=== PATIENT | male | born 1980 | race Caucasian/White ===

== ENCOUNTER → 2018-05-21 11:09 | Outpatient (REF) | payer SELFPAY | LOC: OM 11:09 | PROVIDERS: PCP Nurse Practitioner; Visit Provider Nurse Practitioner Family | DX: Z02.83 Encounter for blood-alcohol and blood-drug test (principal) ==

== ENCOUNTER 2019-03-30 13:59 | Outpatient (CLI) | payer MEDICAID, SELFPAY ==
[2019-03-30 15:41] LABS: Calculated LDL 197; Cholesterol 261 mg/dL (50-200); HDL Cholesterol 40 mg/dL (40-60); Triglyceride 123 mg/dL (30-150)
== END 2019-03-30 14:19 ==
PROVIDERS: PCP Nurse Practitioner; Visit Provider Nurse Practitioner
DX: Z13.220 Encounter for screening for lipoid disorders (principal)
CPT/HCPCS: 36415; 80061; 83721

== ENCOUNTER 2019-04-23 15:29 | Outpatient (REF) | payer MEDICAID, SELFPAY ==
--- NOTE | 2019-04-23 13:00 | SOFT_PTH ---
PATIENT: Taco Bui LOC: [facility] U#:[id number] AGE/SX: 38/M ROOM: RE04/23/[address]: Suki Britt MD : [id number] BED: DIS: 04/23/2019 SPEC #: [id number] RECD: 04/23/19 16:17 STATUS: SILVIANO CINTRON #: [id number] AUDREY: 04/23/19 13:[address]: Suki Britt DEPT: Surgical Specimen RECD BY: Shiloh Michaels ENTERED: 04/23/19 16:18 SP TYPE: SOFT OTHR DR: Grisel Angela APRN Tissues: 1 - SOFT TISSUE MISC (INC. LIPOMA) 2 - SOFT TISSUE MISC (INC. LIPOMA) 3 - SOFT TISSUE MISC (INC. LIPOMA) 4 - SOFT TISSUE MISC (INC. LIPOMA) 5 - SOFT TISSUE MISC (INC. LIPOMA) Procedures: GROSS AND MICRO LEVEL 3 Comments: [id number]
== END 2019-04-23 15:49 ==
LOC: LBN 15:29
PROVIDERS: PCP Nurse Practitioner; Visit Provider Surgery
DX: D17.21 Benign lipomatous neoplasm of skin and subcutaneous tissue of right arm (principal); D17.1 Benign lipomatous neoplasm of skin and subcutaneous tissue of trunk; D17.24 Benign lipomatous neoplasm of skin and subcutaneous tissue of left leg
CPT/HCPCS: 88304; 88305

== ENCOUNTER 2019-04-26 06:58 | Day surgery (SDC) | payer MEDICAID, SELFPAY ==
--- NOTE | 2019-04-26 06:40 | W.COLOREPORT ---
Date of service: 04/26/19 Time of Service: 08:18 Colonoscopy Report Date of procedure: 04/26/19 Pre-op diagnosis general: CHange in bowel habits/ rectal bleeding Post-op diagnosis procedure note: other (Internal hemorrhoids and external kin tags) Procedure: Colonoscopy Surgeon: Suki Britt Anesthesia proc note operative: other (General/ ASA 1/Berta Whitehead, CARINA) Estimated blood loss (mL): 0 Pathology: none sent Complications: None Disposition: same day Indications: Mr. Bui is a pleasant 38 year old male who is here today for a colonoscopy. He has been having changes in bowel habits and intermittent rectal bleeding. Risks, benefits and complications have been reviewed. Complications include but are not limited to bleeding, pain, perforation, missed small lesion/polyp, sore throat, aspiration and adverse reaction to the medications. Questions were entertained and answered to their satisfaction and they wished to proceed. No guarantees were given or implied. Prep: Miralax/Dulcolax Procedure Start Time: 08:18 Procedure End Time: 08:40 Retraction Time: 16 minutes Findings: Grade 2 internal hemorrhoids External skin tags Procedure Description: After informed consent was obtained the patient was taken to the procedure room and placed in a left decubitous position. Monitors were applied and a time out was done. The patients name, date of , procedure, allergies to medications and metal in their body was reviewed. The patient was then sedated. Once sedated and comfortable a rectal exam was done. External exam was normal. Internal exam revealed a normal sphincter tone and no palpable masses. The prostate felt smooth. The scope was then introduced and retro-flexed. Grade 2 internal hemorrhoids were identified. There were no masses or polyps were noted. The scope was then advanced to the cecum without difficulty. The TI and appendiceal orifice were identified. The prep was adequate. The scope was then slowly retracted over 16 minutes back into the rectum. There were no polyps and no diverticula noted. The scope was removed and the patient was woken up and taken back to Same day surgery in stable condition. The patient tolerated the procedure well and there were no immediate complications. Follow up: The patient should follow up when he turns 51 unless they develop changes in bowel habits or other new gastrointestinal complaints. Continue with a high fiber diet.
--- NOTE | 2019-04-26 06:42 | PDOC.DSDIS_ITS ---
Discharge Plan Disposition Patient Disposition: HOME Condition: Good Discharge Details Reason For Visit: Colonoscopy Attending Provider: Suki Britt Primary Care Provider: Grisel Angela Home Meds and New Rx's Prescriptions: Continued multivitamin [Daily Vitamin] 1 EACH tablet 1 ea PO DAILY RF: 0 acetaminophen [Tylenol Extra Strength] 500 MG tablet 1,000 mg PO Q6H PRN PRNRF: 0 Discontinued bisacodyl [Dulcolax (bisacodyl)] 5 mg tablet,delayed release (DR/EC) 5 mg PO ONCE Qty: 4 RF: 0 polyethylene glycol 3350 17 gram powder in packet 255 g PO DAILY Qty: 15 RF: 0 Discharge Instructions Instructions: Colonoscopy (GEN), Hemorrhoids (ED) Additional Instructions: Findings: Internal hemorrhoids and external skin tags Follow up: next colonoscopy when you turn 51. Other: Continue with high fiber diet, fluids and activity. If the hemorrhoids start bleeding on a daily basis then call the office and we can discuss hemorrhoid banding. Please call if you develop: fevers >101.5 Nausea or Vomiting Abdominal pain that is not transient DAY SURGERY UNIT POST COLONOSCOPY INSTRUCTIONS 1. Because there will be medication in your system for the next 24 hours, you may feel a little sleepy. Your coordination will be affected. Therefore: a. Do not drive or operate dangerous equipment for 24 hours. b. Do not drink alcohol beverages for 24 hours (not even beer). c. Plan to go home and rest for the day. 2. Generally there are no restrictions on your activity after a day or so has gone by, but you may feel a bit fatigued for a few days. 3 After you arrive home you may have a light meal and return to a normal diet as you can tolerate it without feeling sick to your stomach. 4. After surgery, you may feel pain or discomfort. This should be only tra nsient, but if it persists please contact your doctor. 5. If there are any questions regarding the findings of your procedure, please feel free to contact your doctor. 6. If you are unable to contact your doctor with a problem, contact the hospital at [phone]. 7. Continue all your regular medications unless directed otherwise. I understand the above instructions and have no questions. Signature of Patient or Responsible Adult Escort Date/Time Name of Responsible Adult Escort Signature of Nurse Date/Time Activity:: Activity as Tolerated Diet:: As Tolerated Discharge Orders Discharge Orders: Discharge Order (Routine); Ordered 04/26/19 Ordered By: Suki Britt DS: Diagnosis Discharge Diagnosis (1) S/P colonoscopy: (2) Internal hemorrhoids: Status: Acute (3) Anal skin tag:
[2019-04-26 07:23] VITALS: BP 121/76; PULSE 66; RESP 16; TEMP 36.6; O2SAT 96
[2019-04-26] MEDS: Lactated Ringers 1,000 ML 80 ML IV (07:52)
[2019-04-26 09:22] VITALS: BP 121/80; PULSE 56; RESP 14; TEMP 36.4; O2SAT 99
== END 2019-04-26 10:00 | disposition home or self-care (01) ==
LOC: SUR 06:58
PROVIDERS: PCP Nurse Practitioner; Visit Provider Surgery
PROC: 0DJD8ZZ Inspection of Lower Intestinal Tract, Via Natural or Artificial Opening Endoscopic (ICD-10-PCS; CPT 45378; principal; 2019-04-26 08:30)
DX: R19.4 Change in bowel habit (principal); K62.5 Hemorrhage of anus and rectum; K64.1 Second degree hemorrhoids; K64.4 Residual hemorrhoidal skin tags
CPT/HCPCS: 45378

== ENCOUNTER 2019-10-29 07:12 | Outpatient (CLI) | payer MEDICAID, SELFPAY ==
[2019-10-29 08:37] LABS: ALT 28 U/L (16-63); AST 13 U/L (15-37); Albumin 4.1 g/dL (3.4-5.0); Alkaline Phosphatase 71 U/L (46-116); Anion Gap 9.7 mmol/L (3-11); BUN 23 mg/dL (7-18); Bilirubin, Total 0.6 mg/dL (0.2-1.0); CO2 27.3 mmol/L (21.0-32.0); CREATININE 1.04 mg/dL (0.70-1.30); Calcium 8.9 mg/dL (8.5-10.1); Calculated LDL 195 mg/dL; Chloride 104 mmol/L (98-107); Cholesterol 258 mg/dL (<200); Glucose 99 mg/dL (74-106); HDL Cholesterol 42 mg/dL (40-60); Potassium 3.7 mmol/L (3.5-5.1); Sodium 141 mmol/L (136-145); TSH (W/Ref FT4) 0.36 uIU/mL (0.36-3.74); Total Protein 7.3 g/dL (6.4-8.2); Triglyceride 105 mg/dL (<150)
[2019-11-01 09:32] LABS: PSA, Screening 0.8 ng/mL (0.0-2.5)
== END 2019-10-29 07:32 ==
PROVIDERS: PCP Nurse Practitioner; Visit Provider Nurse Practitioner Gerontology
DX: E78.5 Hyperlipidemia, unspecified (principal); N52.9 Male erectile dysfunction, unspecified; N13.8 Other obstructive and reflux uropathy; N40.1 Benign prostatic hyperplasia with lower urinary tract symptoms; Z12.5 Encounter for screening for malignant neoplasm of prostate; Z80.42 Family history of malignant neoplasm of prostate
CPT/HCPCS: 36415; 80053; 80061; 84153; 84443

== ENCOUNTER 2020-06-06 12:26 | Outpatient (CLI) | payer MEDICAID, SELFPAY ==
[2020-06-06 12:49] LABS: Abs Immature Grans 0.01 10^3/uL (0.0-0.06); Absolute Basophil Count 0.04 10^3/uL (0.0-0.2); Absolute Eosinophil Count 0.33 10^3/uL (0.0-0.7); Absolute Lymphocyte Count 2.18 10^3/uL (1.2-3.4); Absolute Neutrophil Count 2.56 10^3/uL (1.2-6.7); Basophils % 0.7; HCT 44.5 % (40.0-50.0); HGB 15.3 g/dL (13.5-17.5); Immature Grans % 0.2; Lymphocytes % 39.5; MCH 28.8 pg (27.0-33.0); MCHC 34.4 % (32.0-36.0); MCV 83.6 fL (80-95); MPV 10.3 fL (8.0-11.0); Monocytes % 7.2; Neutrophils % 46.4; Nucleated RBC 0 %; Platelet Count 234 10^3/uL (130-400); RBC 5.32 10^6/uL (4.36-5.78); RDW 11.9 % (11.8-14.1); RDW-SD 36.2 fL; WBC 5.52 10^3/uL (4.4-10.8)
[2020-06-06 13:28] LABS: C-Reactive Protein 0.11 mg/dL (0.0-0.3)
[2020-06-06 13:32] LABS: Calculated LDL 147 mg/dL (<100); Cholesterol 216 mg/dL (<200); HDL Cholesterol 43 mg/dL (40-60); Triglyceride 133 mg/dL (<150)
== END 2020-06-06 12:46 ==
PROVIDERS: PCP Nurse Practitioner; Visit Provider Family Medicine
DX: R53.83 Other fatigue (principal); E78.00 Pure hypercholesterolemia, unspecified
CPT/HCPCS: 36415; 80061; 85025; 86140

== ENCOUNTER 2020-07-05 15:20 | Emergency (ER) | payer MEDICAID, SELFPAY ==
--- NOTE | 2020-07-05 15:22 | ED.GENADUL_ITS ---
Discharge Plan Disposition Patient Disposition: HOME Condition: Stable Discharge Details Clinical Impression: Vomiting, Fever Primary Care Provider: Grisel Angela ED Provider: Nicole Brar Home Meds and New Rx's Prescriptions: Continued acetaminophen [Tylenol Extra Strength] 500 MG tablet 1,000 mg PO Q6H PRN PRNRF: 0 Discharge Instructions Instructions: Fever in Adults (ED), Acute Nausea and Vomiting (ED) Additional Instructions: Drink plenty of fluids and get plenty of rest. Alternate tylenol and motrin as needed and directed for pain. Follow-up with your primary care doctor in 1 week. Return to the emergency department with any worsening or new concerning symptoms. 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 Patient states his symptoms are much improved today. His vitals are within normal limits. He appears fatigued but nontoxic. Normal ENT exam. Lungs clear. Abdomen soft nontender. No meningeal signs. Not seen indication for additional labs or imaging. COVID test obtained. Discussed with patient that his symptoms could have been due to a brief GI viral illness. He is advised to increase fluids, rest, alternate Tylenol and Motrin as needed and follow-up with his PCP for reevaluation as needed. Usual and customary return precautions given prior to discharge. Medical Records Medical records reviewed: Yes I reviewed the patient's medical records. HPI General Mode of arrival: ambulatory . Date/Time Provider Initiated Documentation: 07/05/20 15:21 . Limitations to Documentation: no limitations . Information obtained by: patient . 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 Patient states he last worked 2 days ago and had been feeling fine at that time. He states 2 hours before his shift yesterday he began vomiting and vomited 4 times which consisted mainly of bile. He states he checked his temperature and it was T-max of 38. He last vomited at 4 PM yesterday afternoon. He admits to some loose stool but denies any diarrhea. He admits to some postnasal drip which he usually has with his allergies but states this is no worse than usual. He denies any fever since yesterday, ear pain, sore throat, cough, shortness of breath, chest pain, loss of sense of taste or smell. He denies any known sick contacts or recent travel. He denies any recent antibiotics or new foods. Related Data Home Medications Medication Instructions Recorded Confirmed acetaminophen [Tylenol Extra 1,000 mg PO Q6H PRN PRN 07/21/17 07/05/20 Strength] Allergies Allergy/AdvReac Type Severity Reaction Status Date / Time aspirin Allergy Intermediate chest pain Verified 07/05/20 15:31 naproxen Allergy Intermediate Chest Verified 07/05/20 15:31 tightness NSAIDS (Non-Steroidal Allergy Intermediate Chest Verified 07/05/20 15:31 Anti-Inflamma tightness wheat AdvReac Severe GI Upset Verified 07/05/20 15:31 Review of Systems All systems reviewed & are unremarkable except as noted in HPI and below Constitutional Constitutional: Reports as per HPI, Denies chills and Denies fever(s) Eyes Eyes: Denies blurry vision ENT Ears, Nose, Mouth, and Throat: Denies dizziness, Reports post nasal drip, Denies sore throat and Denies throat swelling Cardiovascular Cardiovascular: Denies chest pain and Denies dyspnea Respiratory Respiratory: Denies cough and Denies dyspnea Gastrointestinal Gastrointestinal: Denies abdominal pain, Denies diarrhea and Reports vomiting Genitourinary Genitourinary: Denies hematuria and Denies dysuria Musculoskeletal Musculoskeletal: Denies back pain and Denies numbness Integumentary/Breasts Skin/Breast: Denies lesions and Denies rash Neurologic Neurologic: Denies dizziness, Denies localized weakness and Denies numbness Allergic/Immunologic Allergic/Immunologic: Denies throat swelling [facility] Medical History (Updated 07/05/20 @ 15:55 by Nicole Brar DO) Anal skin tag Asthma (03/30/14) Dx'ed 05/11/2014 OV; PFTs 04/2014: Mild obstruct dis with elevated diff capacity-->+ASTHMA PMH: ? in childhood; in remission; associated with strenuous exercise Hilliard's fracture, left hand, initial encounter for closed fracture (07/21/17) Celiac disease Family history of prostate cancer Foreskin adhesions Requiring surgical intervention ~6.5yo History of undescended testicle R with surgical inguinal repair <8yo Hyperlipidemia (04/28/14) Internal hemorrhoids Multiple lipomas Seborrheic dermatitis of scalp (03/30/14) Surgical History (Updated 10/08/19 @ 09:56 by Avani Razo NP) H/O thumb surgery S/P colonoscopy (~04/26/19) no polyps Family History (Updated 10/08/19 @ 10:08 by Avani Razo NP) Paternal Grandfather Prostate cancer Mother No problems noted. Father Erectile dysfunction Prostate cancer Maternal Grandfather Heart disease Diabetes Social History Smoking/Tobacco Use Status: Never Alcohol Intake: current Alcohol Intake frequency: a few times a month Drug use: Never Substance use type: does not use Household members: family Education Level: college Sexually active: Yes What type of physical activity do you participate in: bicycling Frequency: 3-4 times per week Seatbelt use: always Helmet use: Yes Drive intox or ride w/intox local truck driver: No Working smoke detector in home: Yes Fire extinguisher in home: Yes Carbon monox detector in home: Yes Do you feel safe at home: Yes Do you feel safe in your relationship?: Yes Exam Const General: cooperative and healthy appearing Orientation: alert and awake HENKS Head: normal to inspection Ears: hearing grossly normal bilaterally, external ears normal and TM's normal bilaterally General nose exam: external nose normal Face and sinus: normal facial exam Mouth: oral mucosae normal Teeth and gingiva: dentition normal Throat: posterior oropharynx normal Eyes General: appearance normal, both eyes and all related structures Eyelids: eyelids normal Pupils: PERRL EOM: EOM intact bilaterally Neck Neck: normal visual inspection Lymphatic: no lymphadenopathy noted Chest Chest: normal inspection of the chest Resp Effort & Inspection: normal respiratory effort and able to speak in complete sentences Auscultation: clear to auscultation bilaterally Cardio Rate: regular rate Rhythm: regular rhythm GI Inspection: normal to inspection Palpation: soft, not firm, no guarding, no hepatosplenomegaly, no masses and nontender Auscultation: normal bowel sounds Skin General skin exam: no rashes or lesions noted Neuro General: patient alert and patient awake Cognition: normal cognition Speech: speech normal Gait: normal gait Motor: muscle tone normal throughout Sensory Exam: no sensory deficits noted Extrem General: normal to inspection, full ROM, capillary refill normal and no edema Psych Appearance: grossly normal Mental Status: mental status grossly normal Speech and Movement: speech and movement normal Affect: normal affect Thought Process: normal
[2020-07-05 15:27] VITALS: BP 114/83; PULSE 79; RESP 18; TEMP 36.8; O2SAT 96
[2020-07-05 16:23] VITALS: BP 114/83; PULSE 79; RESP 18; TEMP 36.8; O2SAT 96
[2020-07-06 23:45] LABS: COVID-19 RT-PCR Result NEGATIVE (Negative)
--- NOTE | 2020-07-07 09:10 | NUR.NOTE ---
Nursing Note: Negative results of COVID testing given to pt at 0911 on listed cell phone.
== END 2020-07-05 16:26 | disposition home or self-care (01) ==
PROVIDERS: Emergency Provider Physician Assistant; PCP Nurse Practitioner
DX: R11.2 Nausea with vomiting, unspecified (principal); R50.9 Fever, unspecified; R09.82 Postnasal drip; Z03.818 Encounter for observation for suspected exposure to other biological agents ruled out
CPT/HCPCS: 99282; U0003; 99283

== ENCOUNTER 2021-05-27 20:41 | Emergency (ER) | payer MEDICAID, SELFPAY ==
[2021-05-27 20:47] VITALS: BP 120/82; PULSE 94; RESP 16; TEMP 37.1; O2SAT 95
[2021-05-27 21:01] LABS: Source Nasal/Nares
[2021-05-27 21:51] LABS: COVID-19 PCR Negative (Negative)
== END 2021-05-27 22:00 ==
PROVIDERS: Registered Nurse Emergency; PCP Nurse Practitioner
DX: Z20.822 Contact with and (suspected) exposure to COVID-19 (principal)
CPT/HCPCS: 87635